=== PATIENT | female | born 2000 | race Caucasian/White ===

== ENCOUNTER 2019-07-04 13:01 | Day surgery (SDC) | payer OTHER ==
[~2019-07-04] VITALS: Ht 170.2 cm; Wt 57.3 kg
[~2019-07-04 13:01] MED LIST: None at this Time
[2019-07-04] MEDS ORDERED: LACTATED RINGERS 1,000 ML IV ONE (13:09)
[2019-07-04] MEDS ORDERED: SCOPOLAMINE PATCH, 1.5MG PATCH.TD72 TD STA (13:10)
[2019-07-04] MEDS ORDERED: GABAPENTIN 300 MG CAPSULE PO STA (13:10)
[2019-07-04] MEDS ORDERED: ACETAMINOPHEN 500 MG TABLET PO STA (13:10)
[2019-07-04 13:31] VITALS: BP 106/73
[2019-07-04] MEDS ORDERED: FENTANYL PF 250 MCG/5ML ONE (13:39)
[2019-07-04] MEDS ORDERED: MIDAZOLAM 1 MG/ML, 2ML ONE (13:39)
[2019-07-04 14:08] LABS: HCG UR SG 1.018 (1.003-1.030)
[2019-07-04] MEDS ORDERED: EPINEPHRINE 1 MG/ML, 1ML ONE (14:29)
[2019-07-04] MEDS ORDERED: BUPIVACAINE/PF 0.25% ONE (14:29)
[2019-07-04] MEDS ORDERED: SILVER NITRATE STICK TP ONE (14:29)
[2019-07-04] MEDS ORDERED: OXYcodone 5 MG/5 ML ORAL.SOL UDC PO PRN (14:30)
[2019-07-04] MEDS ORDERED: hydrALAzine 20 MG/ML, 1ML IV PRN (14:30)
[2019-07-04] MEDS ORDERED: LABETALOL 5MG/ML, 20ML IV PRN (14:30)
[2019-07-04] MEDS ORDERED: HALOPERIDOL 5 MG/ML IV PRN (14:30)
[2019-07-04] MEDS ORDERED: HYDROmorphone 2 MG/ML, 1ML IVPush PRN (14:30)
[2019-07-04] MEDS ORDERED: FENTANYL PF 100 MCG/2ML IV PRN (14:30)
[2019-07-04] MEDS ORDERED: MEPERIDINE/PF 25MG/ML,1ML IVPush PRN (14:30)
[2019-07-04] MEDS ORDERED: PROMETHAZINE 25 MG/ML, 1ML IV PRN (14:30)
[2019-07-04] MEDS ORDERED: PROPOFOL 10 MG/ML, 20ML ONE (16:31)
[2019-07-04] MEDS ORDERED: ONDANSETRON 2MG/ML, 2ML ONE (16:31)
[2019-07-04] MEDS ORDERED: NEOSTIGMINE 1 MG/ML, 10ML ONE (16:31)
[2019-07-04] MEDS ORDERED: CEFAZOLIN 1,000 MG ONE (16:31)
[2019-07-04] MEDS ORDERED: DEXAMETHASONE 4 MG/ML, 1ML ONE (16:31)
[2019-07-04] MEDS ORDERED: ROCURONIUM 10MG/ML,5ML ONE (16:31)
[2019-07-04] MEDS ORDERED: GLYCOPYRROLATE 0.2MG/1ML, 5ML ONE (16:31)
[2019-07-04] MEDS ORDERED: SUCCINYLCHOLINE 20 MG/ML, 10ML ONE (16:31)
[2019-07-04] MEDS ORDERED: MEPERIDINE/PF 25MG/ML,1ML ONE (16:44)
[2019-07-04] MEDS ORDERED: ONDANSETRON 2MG/ML, 2ML IVPush PRN (20:30)
== END 2019-07-04 21:50 | disposition home or self-care (01) ==
LOC: OUT 13:01 → 4NE 18:38 → OUT 21:50
PROVIDERS: ATTEND Obstetrics & Gynecology Reproductive Endocrinology
DX: N94.6 Dysmenorrhea, unspecified (principal); N80.3 Endometriosis of pelvic peritoneum; K66.0 Peritoneal adhesions (postprocedural) (postinfection)
CPT/HCPCS: 58662; 81025; J0171; J0330; J0690; J1100; J2175; J2250; J2405; J2704; J2710; J3010; J3490; J7120; G0378

== ENCOUNTER 2019-11-15 02:07 | Emergency (ER) | payer OTHER ==
[~2019-11-15] VITALS: Ht 170.2 cm; Wt 59.0 kg
--- NOTE | 2019-11-15 02:25 | NUR ---
ASSESSMENT MADE. PA AT BEDSIDE. ORDERS MADE.
[2019-11-15 02:27] VITALS: BP 114/75
[2019-11-15] MEDS ORDERED: ACETAMINOPHEN 325 MG TABLET PO ONE (02:30)
--- NOTE | 2019-11-15 02:31 | NUR ---
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 AWAITING ULTRASOUND.
[2019-11-15] MEDS ORDERED: ACETAMINOPHEN 325 MG TABLET ONE (02:35)
[2019-11-15 02:41] LABS: BASOPHILS # (AUTO) 0.02 x10^3/uL (0-0.3); BASOPHILS % (AUTO) 0 % (0-1); EOSINOPHILS % (AUTO) 1 % (1-7); LYMPHOCYTES # (AUTO) 2.08 x10^3/uL (1-6.1); LYMPHOCYTES % (AUTO) 14 % (22-44); MD NO; MEAN CORPUSCULAR HEMOGLOBIN 29.3 pg (27.0-34.8); MEAN CORPUSCULAR HGB CONC 33.4 g/dL (32.4-35.8); MEAN CORPUSCULAR VOLUME 87.8 fL (80-100); MEAN PLATELET VOLUME 8.8 fL (7.4-10.4); MONOCYTES # (AUTO) 0.38 x10^3/uL (0-1.4); MONOCYTES % (AUTO) 3 % (2-9); NEUTROPHILS # (AUTO) 11.73 x10^3/uL (1.8-8.0); NEUTROPHILS % (AUTO) 82 % (42-75); PLATELET COUNT 222 x10^3/uL (130-400); RED BLOOD COUNT 4.65 x10^6/uL (3.82-5.3); RED CELL DISTRIBUTION WIDTH 12.4 % (9.6-15.2)
[2019-11-15 02:49] LABS: ALANINE AMINOTRANSFERASE 16 U/L (12-78); ALBUMIN 3.4 g/dL (3.4-5.0); ANION GAP 9 mmol/L (5-15); CHLORIDE 109 mmol/L (98-107); CREATININE 0.67 mg/dL (0.55-1.02)
--- NOTE | 2019-11-15 02:55 | NUR ---
Patient to US.
[2019-11-15 03:06] LABS: ALKALINE PHOSPHATASE 92 U/L (45-117); BILIRUBIN,TOTAL 0.4 mg/dL (0.2-1.0); TOTAL PROTEIN 7.4 g/dL (6.4-8.2)
--- NOTE | 2019-11-15 03:50 | NUR ---
TASK RN: PT ABLE TO AMBULATE TO BATHROOM WITH STEADY GAIT TO PROVIDE UA. REPORTS PAIN COMES AND GOES CURRENTLY 3/10 PAIN. PT DENIES FURTHER NEEDS AT THIS TIME.
[2019-11-15 04:14] LABS: CULTURE INDICATED? YES; MICROSCOPIC INDICATED
--- NOTE | 2019-11-15 04:31 | NUR ---
Discharge instructions given. All questions and concerns addressed. Patient ambulatory with a steady gait. Belongings with patient.
== END 2019-11-15 04:32 | disposition home or self-care (01) ==
LOC: ED 03:51
DX: O20.0 Threatened abortion (principal); R10.2 Pelvic and perineal pain
CPT/HCPCS: 36415; 76801; 80053; 81001; 84702; 85025; 86901; 87086; 99284

== ENCOUNTER 2020-01-18 14:30 | Outpatient (CLI) | payer OTHER ==
[~2020-01-18] VITALS: Ht 170.2 cm; Wt 57.2 kg
[2020-01-18 14:43] VITALS: BP 118/83
[2020-01-18 15:44] LABS: MICROSCOPIC INDICATED
== END 2020-01-18 17:04 | disposition home or self-care (01) ==
LOC: LDOP 14:30
PROVIDERS: ATTEND Obstetrics & Gynecology
DX: O26.892 Other specified pregnancy related conditions, second trimester (principal); R10.9 Unspecified abdominal pain; Z3A.20 20 weeks gestation of pregnancy
CPT/HCPCS: 76815; 81001; 84112; 87086; 99211; G0463

== ENCOUNTER 2020-03-01 10:16 | Outpatient (CLI) | payer OTHER ==
[~2020-03-01] VITALS: Ht 170.2 cm; Wt 63.6 kg
[2020-03-01 10:30] VITALS: BP 114/65
[2020-03-01] MEDS ORDERED: ACETAMINOPHEN 325 MG TABLET ONE (11:04)
[2020-03-01] MEDS ORDERED: ACETAMINOPHEN 325 MG TABLET PO PRN (11:30)
== END 2020-03-01 13:01 | disposition home or self-care (01) ==
LOC: LDOP 10:16
PROVIDERS: ATTEND Obstetrics & Gynecology
DX: O26.892 Other specified pregnancy related conditions, second trimester (principal); R10.9 Unspecified abdominal pain; Z3A.20 20 weeks gestation of pregnancy; W55.09XA Other contact with cat, initial encounter; Y92.89 Other specified places as the place of occurrence of the external cause; Y99.8 Other external cause status
CPT/HCPCS: 59025

== ENCOUNTER 2020-03-24 19:50 | Outpatient (CLI) | payer OTHER ==
[~2020-03-24] VITALS: Ht 170.2 cm; Wt 65.0 kg
[2020-03-24 21:05] LABS: MICROSCOPIC AUTO
== END 2020-03-24 22:55 | disposition home or self-care (01) ==
LOC: LDOP 19:50
PROVIDERS: ATTEND Obstetrics & Gynecology
DX: O46.93 Antepartum hemorrhage, unspecified, third trimester (principal); Z3A.29 29 weeks gestation of pregnancy
CPT/HCPCS: 59025; 76815; 81001; 87086

== ENCOUNTER 2020-04-08 10:01 | Outpatient (CLI) | payer OTHER ==
[~2020-04-08] VITALS: Ht 170.2 cm; Wt 65.9 kg
[2020-04-08 10:37] VITALS: BP 114/67
[2020-04-08] MEDS ORDERED: TERBUTALINE 1 MG/ML, 1ML ONE (11:04)
[2020-04-08] MEDS ORDERED: LACTATED RINGERS 1,000 ML IVBOLUS ONE (11:30)
[2020-04-08] MEDS ORDERED: TERBUTALINE 1 MG/ML, 1ML SQ ONE (11:30)
[2020-04-08] MEDS ORDERED: LACTATED RINGERS 1,000 ML IV SCH (11:30)
[2020-04-08 11:37] LABS: MICROSCOPIC INDICATED
[2020-04-08] MEDS ORDERED: PREN1TAB60 PO (13:40)
== END 2020-04-08 14:00 | disposition home or self-care (01) ==
LOC: LDOP 10:01
PROVIDERS: ATTEND Obstetrics & Gynecology
DX: O60.03 Preterm labor without delivery, third trimester (principal); Z3A.30 30 weeks gestation of pregnancy
CPT/HCPCS: 59025; 76817; 81001; 87086; 96360; 96361; 96372; J3105; J7120

== ENCOUNTER 2020-05-13 04:36 | Outpatient (CLI) | payer OTHER ==
[~2020-05-13 04:36] MED LIST changes: +PREN1TAB60 PO
[2020-05-13 05:57] LABS: MICROSCOPIC INDICATED
== END 2020-05-13 06:08 | disposition home or self-care (01) ==
LOC: LDOP 04:36
PROVIDERS: ATTEND Obstetrics & Gynecology
DX: Z34.93 Encounter for supervision of normal pregnancy, unspecified, third trimester (principal); Z3A.35 35 weeks gestation of pregnancy
CPT/HCPCS: 59025; 81001; 87086